=== PATIENT | male | born 1975 | race Caucasian/White ===

== ENCOUNTER 2017-05-17 20:32 | Emergency (ER) | payer OTHER ==
[~2017-05-17] VITALS: Ht 175.3 cm; Wt 86.2 kg
== END 2017-05-17 23:00 | disposition home or self-care (01) ==
LOC: ER 20:32
DX: R21 Rash and other nonspecific skin eruption (principal); T78.49XA Other allergy, initial encounter

== ENCOUNTER 2017-05-22 19:51 | Emergency (ER) | payer OTHER ==
[~2017-05-22] VITALS: Ht 175.3 cm; Wt 86.2 kg
== END 2017-05-22 21:34 | disposition home or self-care (01) ==
LOC: ER 19:51
DX: I10 Essential (primary) hypertension (principal); E79.0 Hyperuricemia without signs of inflammatory arthritis and tophaceous disease